=== PATIENT | female | born 1955 | race Caucasian/White ===

== ENCOUNTER 2018-12-20 17:51 | Inpatient (IN) | payer MEDICAID, OTHER ==
[~2018-12-20] VITALS: Ht 160 cm; Wt 90.2 kg
[2018-12-20] MEDS ORDERED: ONDANSETRON 2MG/ML, 2ML ONE (18:23)
[2018-12-20] MEDS ORDERED: MORPHINE SULFATE 4 MG/ML, 1ML ONE (18:25)
[2018-12-20] MEDS ORDERED: ONDANSETRON 2MG/ML, 2ML IVPush ONE (18:30)
--- NOTE | 2018-12-20 18:40 | NUR ---
GENERALIZED ABD PAIN X 2 MONTHS DECRIBED PRESSURE. DENIES N/V/D. REPORTS DARK STOOL, HR 120. DAILY DRINKER, HAS BEEN TAKING MOTRIN/ALEVE AROUND THE CLOCK
--- NOTE | 2018-12-20 18:49 | NUR ---
URINE OBNTAINED-SENT PIV PLACED-FROM WHICH LABS WERE DRAWN. THEN MEDICATED PER EMAR
--- NOTE | 2018-12-20 18:50 | NUR ---
REPORT TO OMAR SCHMITZ
--- NOTE | 2018-12-20 18:55 | NUR ---
PT STATES ABD PAIN X 2 MONTHS. DENIES N/V/D, HX LIVER CIRROSIS, PT ATTACHED TO ALL MONITORS. PT TACHY ON THE MONITOR. CALL LIGHT WITHIN REACH.
[2018-12-20 18:57] LABS: BASOPHILS # (AUTO) 0.04 x10^3/uL (0-0.1); BASOPHILS % (AUTO) 1 % (0-1); EOSINOPHILS # (AUTO) 0.05 x10^3/uL (0-0.4); EOSINOPHILS % (AUTO) 1 % (1-7); LYMPHOCYTES # (AUTO) 1.57 x10^3/uL (1-3.4); LYMPHOCYTES % (AUTO) 21 % (22-44); MD NO; MEAN CORPUSCULAR HEMOGLOBIN 30.8 pg (27.0-34.8); MEAN CORPUSCULAR HGB CONC 32.8 g/dL (32.4-35.8); MEAN CORPUSCULAR VOLUME 93.7 fL (80-100); MEAN PLATELET VOLUME 11.5 fL (7.4-10.4); MONOCYTES # (AUTO) 0.84 x10^3/uL (0.2-0.8); MONOCYTES % (AUTO) 11 % (2-9); NEUTROPHILS # (AUTO) 4.99 x10^3/uL (1.8-6.8); NEUTROPHILS % (AUTO) 67 % (42-75); PLATELET COUNT 190 x10^3/uL (130-400); RED BLOOD COUNT 4.83 x10^6/uL (3.82-5.3); RED CELL DISTRIBUTION WIDTH 15.4 % (9.6-15.2)
[2018-12-20] MEDS: MORPHINE SULFATE 4 MG/ML, 1ML IVPush PRN (18:57)
--- NOTE | 2018-12-20 18:57 | NUR ---
PT REPORTS PAIN IN ABD HAS IMPROVED FROM A 7/10 TO 3/10 AFTER PAIN MEDS.
[2018-12-20] MEDS ORDERED: METF850T10 PO (18:59)
[2018-12-20] MEDS ORDERED: LISI-170 PO (18:59)
[2018-12-20 19:07] LABS: MICROSCOPIC NOT IND
[2018-12-20 19:08] LABS: ALANINE AMINOTRANSFERASE 129 U/L (12-78); ALBUMIN 2.9 g/dL (3.4-5.0); ANION GAP 8 mmol/L (5-15); CALCIUM 9.2 mg/dL (8.5-10.1); CHLORIDE 108 mmol/L (98-107); CREATININE 0.86 mg/dL (0.55-1.02)
[2018-12-20 19:13] LABS: ALKALINE PHOSPHATASE 241 U/L (45-117); BILIRUBIN,TOTAL 0.7 mg/dL (0.2-1.0); TOTAL PROTEIN 7.8 g/dL (6.4-8.2); TROPONIN I < 0.015 ng/mL (0.000-0.045)
[2018-12-20 19:14] LABS: CULTURE INDICATED? NO
[2018-12-20] MEDS ORDERED: SODIUM CHLORIDE 0.9% 1,000ML IVBOLUS ONE (19:30)
[2018-12-20] MEDS ORDERED: LORazepam 2 MG/ML, 1ML IVPush ONE (19:30)
[2018-12-20] MEDS ORDERED: LORazepam 2 MG/ML, 1ML ONE (19:42)
--- NOTE | 2018-12-20 19:48 | NUR ---
PT MEDICATED PER EMAR. PT RESTING ON GURNEY. NO ACUTE DISTRESS NOTED.
[2018-12-20] MEDS ORDERED: ONDANSETRON 2MG/ML, 2ML IVPush PRN ×2 (20:30→21:00)
[2018-12-20] MEDS ORDERED: MORPHINE SULFATE 4 MG/ML, 1ML IVPush PRN (20:30)
--- NOTE | 2018-12-20 20:49 | NUR ---
PT RESTING ON GURNEY. NO ACUTE DISTRESS NOTED. REPORT GIVEN TO NADIR SNELL
[2018-12-20] MEDS: INSULIN LISPRO 100 UNITS/ML, PEN SQ-INSULIN SCH (21:00)
[2018-12-20] MEDS ORDERED: BISACODYL 10 MG SUPP PR PRN (21:00)
[2018-12-20] MEDS ORDERED: OMNIPAQUE 350 MG/ML, 100ML BOTTLE ONE (21:08)
[2018-12-20 21:19] LABS: INTERNATIONAL NORMALIZED RATIO 1.14 (0.93-1.1); PROTHROMBIN TIME 11.9 Seconds (9.6-11.5)
[2018-12-20 21:30] LABS: HEMOGLOBIN A1C 7.7 % (4.2-6.3)
[2018-12-20 22:36] VITALS: BP 116/77
[2018-12-20] MEDS: SODIUM CHLORIDE FLUSH 10ML SYR IVF SCH (23:36)
[2018-12-21] MEDS: morphine SULFATE 10 MG/ML, 1ML IVPush PRN ×4 (00:16→22:50)
[2018-12-21 03:03] VITALS: BP 124/77
[2018-12-21 04:42] LABS: BASOPHILS # (AUTO) 0.04 x10^3/uL (0-0.1); BASOPHILS % (AUTO) 1 % (0-1); EOSINOPHILS % (AUTO) 2 % (1-7); LYMPHOCYTES # (AUTO) 1.57 x10^3/uL (1-3.4); LYMPHOCYTES % (AUTO) 23 % (22-44); MD NO; MEAN CORPUSCULAR HEMOGLOBIN 30.8 pg (27.0-34.8); MEAN CORPUSCULAR VOLUME 93.3 fL (80-100); MEAN PLATELET VOLUME 11.3 fL (7.4-10.4); MONOCYTES % (AUTO) 13 % (2-9); NEUTROPHILS # (AUTO) 4.33 x10^3/uL (1.8-6.8); NEUTROPHILS % (AUTO) 62 % (42-75); PLATELET COUNT 206 x10^3/uL (130-400); RED BLOOD COUNT 4.39 x10^6/uL (3.82-5.3)
[2018-12-21 04:53] LABS: ALBUMIN 2.8 g/dL (3.4-5.0); ANION GAP 5 mmol/L (5-15); CALCIUM 8.8 mg/dL (8.5-10.1); CHLORIDE 109 mmol/L (98-107)
[2018-12-21 04:55] LABS: ALANINE AMINOTRANSFERASE 104 U/L (12-78); ALKALINE PHOSPHATASE 195 U/L (45-117); BILIRUBIN,TOTAL 0.7 mg/dL (0.2-1.0); CREATININE 0.74 mg/dL (0.55-1.02); TOTAL PROTEIN 6.7 g/dL (6.4-8.2)
[2018-12-21 06:55] VITALS: BP 111/76
[2018-12-21] MEDS: INSULIN LISPRO 100 UNITS/ML, PEN SQ-INSULIN SCH ×4 (08:46→20:55)
[2018-12-21] MEDS ORDERED: LISINOPRIL 20 MG TABLET PO SCH (09:00)
[2018-12-21] MEDS: SODIUM CHLORIDE FLUSH 10ML SYR IVF SCH ×2 (09:03→20:55)
[2018-12-21] MEDS ORDERED: FENTANYL PF 100 MCG/2ML ONE (10:07)
[2018-12-21] MEDS ORDERED: NALOXONE 1 MG/ML, 2ML ONE (10:07)
[2018-12-21] MEDS ORDERED: MIDAZOLAM 1 MG/ML, 5ML ONE (10:07)
[2018-12-21] MEDS ORDERED: FLUMAZENIL 0.1 MG/1 ML, 5ML ONE (10:07)
[2018-12-21 10:18] LABS: HEMOGLOBIN A1C 7.8 % (4.2-6.3)
[2018-12-21 12:47] VITALS: BP 109/76
[2018-12-21] MEDS: MORPHINE SULFATE 4 MG/ML, 1ML IVPush PRN (14:58)
[2018-12-21] MEDS: METOPROLOL TARTRATE 25 MG TABLET PO SCH (18:14)
[2018-12-21 18:47] VITALS: BP 106/60
[2018-12-22] MEDS: morphine SULFATE 10 MG/ML, 1ML IVPush PRN ×2 (02:19→05:27)
[2018-12-22 02:20] VITALS: BP 108/76
[2018-12-22 04:38] LABS: MEAN CORPUSCULAR HGB CONC 32.3 g/dL (32.4-35.8); MEAN CORPUSCULAR VOLUME 92.9 fL (80-100); MEAN PLATELET VOLUME 10.9 fL (7.4-10.4); PLATELET COUNT 236 x10^3/uL (130-400); RED BLOOD COUNT 4.75 x10^6/uL (3.82-5.3); RED CELL DISTRIBUTION WIDTH 15.3 % (9.6-15.2)
[2018-12-22 04:40] LABS: ALANINE AMINOTRANSFERASE 96 U/L (12-78); ANION GAP 3 mmol/L (5-15); CALCIUM 8.7 mg/dL (8.5-10.1); CHLORIDE 105 mmol/L (98-107); CREATININE 1.07 mg/dL (0.55-1.02)
[2018-12-22 04:43] LABS: ALKALINE PHOSPHATASE 195 U/L (45-117); BILIRUBIN,TOTAL 0.8 mg/dL (0.2-1.0); TOTAL PROTEIN 7.6 g/dL (6.4-8.2)
[2018-12-22 04:56] LABS: BASOPHILS # (AUTO) 0.03 x10^3/uL (0-0.1); BASOPHILS % (AUTO) 0 % (0-1); EOSINOPHILS # (AUTO) 0.08 x10^3/uL (0-0.4); EOSINOPHILS % (AUTO) 1 % (1-7); LYMPHOCYTES % (AUTO) 25 % (22-44); MD SCAN; MONOCYTES # (AUTO) 1.04 x10^3/uL (0.2-0.8); MONOCYTES % (AUTO) 12 % (2-9); NEUTROPHILS # (AUTO) 5.21 x10^3/uL (1.8-6.8); NEUTROPHILS % (AUTO) 62 % (42-75)
[2018-12-22] MEDS: METOPROLOL TARTRATE 25 MG TABLET PO SCH (05:24)
[2018-12-22] MEDS: INSULIN LISPRO 100 UNITS/ML, PEN SQ-INSULIN SCH (07:01)
[2018-12-22 07:21] VITALS: BP 97/65
[2018-12-22] MEDS ORDERED: METO25TA35 PO (08:55)
[2018-12-22] MEDS ORDERED: LISINOPRIL 5 MG TABLET PO SCH (09:00)
[2018-12-22] MEDS: SODIUM CHLORIDE FLUSH 10ML SYR IVF SCH (09:02)
[2018-12-22] MEDS ORDERED: OXYC5TAB3 PO (11:05)
== END 2018-12-22 11:18 | disposition home or self-care (01) | DRG 436 ==
LOC: ED 18:12 → EDIP 20:09 → 4NW 22:21 → DCLOUNGE 12-22 11:03
PROVIDERS: ADMIT Internal Medicine; ATTEND Internal Medicine
PROC: 0FB13ZX Excision of Right Lobe Liver, Percutaneous Approach, Diagnostic (ICD-10-PCS; principal; 2018-12-21)
DX: C78.7 Secondary malignant neoplasm of liver and intrahepatic bile duct (principal); J90 Pleural effusion, not elsewhere classified; R18.8 Other ascites; C34.90 Malignant neoplasm of unspecified part of unspecified bronchus or lung; B19.20 Unspecified viral hepatitis C without hepatic coma; E11.9 Type 2 diabetes mellitus without complications; E66.01 Morbid (severe) obesity due to excess calories; I10 Essential (primary) hypertension; Z68.35 Body mass index [BMI] 35.0-35.9, adult; Z88.0 Allergy status to penicillin; K74.60 Unspecified cirrhosis of liver; Z98.1 Arthrodesis status
CPT/HCPCS: 36415; 47000; 74177; 77012; 80053; 80307; 81003; 82105; 82962; 83036; 83690; 84484; 85025; 85610; 85730; 88307; 88313; 88341; 88342; 93005; 96361; 96374; 96375; 99156; 99157; G0378; J2250; J2405; J3010; Q9967; J1815; J2060; J2270; J2310; J7030